=== PATIENT | female | born 1980 | race Caucasian/White ===

== ENCOUNTER 2023-01-21 21:03 | Emergency (ER) | payer OTHER, SELFPAY ==
[2023-01-21 21:23] VITALS: BP 134/96; PULSE 115; RESP 18; TEMP 36.7; O2SAT 96; BMI 30.8
--- NOTE | 2023-01-21 21:36 | ED_ITS ---
HPI - General Adult General Chief complaint: Laceration/Wound Stated complaint: Lacerations on scalp Time Seen by Provider: 01/21/23 21:25 Source: patient Mode of arrival: ambulatory Limitations: no limitations History of Present Illness HPI narrative: 42-year-old female coming in today complaining multiple lacerations to her head. Her cat was being chased by her dogs and she tried to intervene, the cat climbed on her head and scratched her in multiple places. Animal's immunizations are all up-to-date. Patient unsure of her tetanus shot. Related Data Home Medications Medication Instructions Recorded Confirmed atenolol 50 mg tablet 50 mg PO DAILY 01/21/23 01/21/23 Allergies Allergy/AdvReac Type Severity Reaction Status Date / Time No Known Drug Allergies Allergy Verified 01/21/23 21:25 Review of Systems Status of ROS: Reports: 6 or more systems reviewed and unremarkable except as noted in History and below Exam Narrative: Exam Narrative: Well-nourished well-developed patient in no acute distress. Alert and oriented. Answers questions appropriately. Mood and affect are appropriate. Thoughts are goal oriented and rational. No tangential or magical thinking noted. Patient speaks in full sentences without needing to catch her breath. HEENT: Normocephalic. Pupils are equally round reactive to light. Extraocular muscles are intact. Conjunctivae are moist without any icterus noted. Moist mucous membranes. Posterior pharynx is normal. Neck is soft without any lymphadenopathy or thyromegaly. No masses are appreciated. Patient has multiple scratches scattered throughout the scalp. She has 1 laceration right on the top of the scalp that is approximately 1 cm in length, to lacerations next to it that are approximately 4-5 mm in length. She has a laceration behind the ear and 1 in the parietal scalp that her also gaping open. Skin: She has several superficial scratches across the chest wall. Const: Vital Signs, click to edit/add: Vital Signs - 24 hr 01/21/23 21:23 Temperature 98.1 F Pulse Rate [Left P ulse Oximeter] 115 H Respiratory Rate 18 Blood Pressure [Ri ght Upper Arm] 134/96 H Pulse Oximetry 96 Oxygen Delivery Me thod Room Air Course Course ED Course: Head was clean and 5 lacerations that required repair were cleaned again explored and anesthetize with lidocaine with epinephrine. 5 simin were placed in the large laceration,2 and 1 on the lacerations next to. 1 behind the ear and 3 on the parietal area of the right scalp. Vital Signs Vital signs: Initial Vital Signs Temperature 98.1 F 01/21/23 21:23 Temperature Source Temporal Artery Scan 01/21/23 21:23 Pulse Rate 115 H 01/21/23 21:23 Respiratory Rate 18 01/21/23 21:23 Blood Pressure 134/96 H 01/21/23 21:23 Blood Pressure Mean 108 H 01/21/23 21:23 Blood Pressure Position Sitting 01/21/23 21:23 Pulse Oximetry 96 01/21/23 21:23 Oxygen Delivery Method Room Air 01/21/23 21:23 Vital Signs Temperature 98.1 F 01/21/23 21:23 Pulse Rate 115 H 01/21/23 21:23 Respiratory Rate 18 01/21/23 21:23 Blood Pressure 134/96 H 01/21/23 21:23 Pulse Oximetry 96 01/21/23 21:23 Oxygen Delivery Method Room Air 01/21/23 21:23 Temperature 98.1 F 01/21/23 21:23 Pulse Rate 115 H 01/21/23 21:23 Respiratory Rate 18 01/21/23 21:23 Blood Pressure 134/96 H 01/21/23 21:23 Pulse Oximetry 96 01/21/23 21:23 Oxygen Delivery Method Room Air 01/21/23 21:23 Medical Decision Making MDM Narrative Medical decision making narrative: 42-year-old female multiple lacerations to the scalp stapled per above. We discussed wound hygiene, signs symptoms of infections, reasons to return or fol low staple removal in 5-7 days. Her tetanus shot was updated in 2014. Patient had no other questions. Discharge Plan Discharge Clinical Impression: Laceration Patient Disposition: Home, Self-Care Condition: Improved Additional Instructions: Keep head clean and dry. Okay to shower like you normally would, but do not soak the head such as going swimming. Watch for signs of infection which include drainage from the lacerations or redness of the area. If this occurs follow-up with your doctor right away or return to the ER. Jackson should be removed by your primary care provider in approximately 5-7 days. You have a total of 12 simin. 5 simin were placed in the large laceration at the top of the scalp,2 and 1 on the lacerations next to. 1 behind the ear and 3 on the parietal area of the right scalp. Prescriptions: No Action atenolol 50 mg tablet 50 mg PO DAILY Follow Up/Referrals: Provider,Not a Local [Primary Care Provider] - Stand Alone Forms: Active Implants Info Instructions
== END 2023-01-21 22:29 | disposition home or self-care (01) ==
PROVIDERS: Emergency Provider Family Medicine
DX: S01.01XA Laceration without foreign body of scalp, initial encounter (principal); W55.03XA Scratched by cat, initial encounter
CPT/HCPCS: 12001; 99283; 99284